=== PATIENT | male | born 1970 | race Caucasian/White ===

== ENCOUNTER 2016-12-17 20:10 | Emergency (ER) | payer OTHER ==
[2016-12-17 19:33] LABS: BASOPHILS 0.4 %; BASOPHILS ABSOLUTE 0.03 10/3/uL (0.0-0.16); EOSINOPHILS 0.7 %; EOSINOPHILS ABSOLUTE 0.06 10/3/uL (0.0-0.53); ER CBC TAT 0 Hrs 05 Mins; HEMOGLOBIN 14.5 g/dL (13.6-17.8); IMMATURE GRANULOCYTES 0.2 %; IMMATURE GRANULOCYTES ABSOLUTE 0.02 10/3/uL (0.0-0.11); LYMPHOCYTES 26.7 %; LYMPHOCYTES ABSOLUTE 2.15 10/3/uL (0.67-4.30); MEAN CORPUS HGB CONC 33.7 g/dL (32.0-36.0); MEAN CORPUSCULAR HEMOGLOB 31.3 pg (26.0-34.0); MEAN PLATELET VOLUME 9.5 fL (9.2-13.0); MONOCYTES 10.4 %; MONOCYTES ABSOLUTE 0.84 10/3/uL (0.21-1.20); NEUTROPHILS 61.6 %; NEUTROPHILS ABSOLUTE 4.94 10/3/uL (2.02-8.40); PLATELET COUNT 251 10/3/uL (150-400); RBC DISTRIBUTION WIDTH 12.7 % (12.0-16.0); RED CELL COUNT 4.64 10/6/uL (4.7-6.1)
[2016-12-17 19:34] LABS: MANUAL DIFF NO %; MEAN CORPUSCULAR VOLUME 92.7 fL (80-100)
[2016-12-17 19:52] LABS: BUN (BLOOD UREA NITROGEN) 13 MG/DL (6-23); CALCIUM, SERUM 8.3 MG/DL (8.5-10.4); CHLORIDE, SERUM 104 MMOL/L (96-112); CO2 (CARBON DIOXIDE) 24 MMOL/L (24-34); CREATININE 0.98 MG/DL (0.70-1.30); GFR AFRICAN AMERICAN 107 ML/MIN (>=60); GFR NON AFRICAN AMERICAN 93 ML/MIN (>=60); GLUCOSE, SERUM 93 MG/DL (60-99); SODIUM, SERUM 137 MMOL/L (135-148)
[~2016-12-17 20:10] MED LIST: ASAB PO; COREG6 PO; LEVOTHYROXIN50 MCG PO; METHOC500B PO; MULTIPLE VIT PO; NEXIUM20 M1 PO; NORCO1 TA1 PO; NORV5 PO; PRILOSEC OTC20 MG PO; ZOL50 PO
[2016-12-17 20:24] LABS: INFLUENZA A SCREEN NEGATIVE (NEGATIVE); INFLUENZA B SCREEN POSITIVE (NEGATIVE)
[2017-06-13] MEDS ORDERED: ADVIL PO (12:49)
[2017-06-17] MEDS ORDERED: PERCOCET 10/3251 TAB PO (10:34)
[2017-06-17] MEDS ORDERED: V5 PO (10:34)
== END 2016-12-17 21:27 | disposition home or self-care (01) ==
LOC: ER 20:10
PROVIDERS: Nurse Practitioner Acute Care
DX: J10.1 Influenza due to other identified influenza virus with other respiratory manifestations (principal); I10 Essential (primary) hypertension; K21.9 Gastro-esophageal reflux disease without esophagitis; F32.9 Major depressive disorder, single episode, unspecified; F17.200 Nicotine dependence, unspecified, uncomplicated; Z88.1 Allergy status to other antibiotic agents; Z79.899 Other long term (current) drug therapy; Z79.82 Long term (current) use of aspirin
CPT/HCPCS: 71020; 80048; 85025; 87804; 96372; 99284; J1885

== ENCOUNTER 2017-06-22 04:38 | Inpatient (IN) | payer OTHER ==
[~2017-06-22] VITALS: Ht 185.4 cm; Wt 113.0 kg
--- NOTE | ~2017-06-22 | OP ---
Record Of Operation [facility] [address] [place]. [address] NAME: YOGI PENA : 72 STATUS : ADM IN PAT#: [id number] AGE: 46 ADM/REG DATE : 06/22/17 MR#: [id number] REPORT SERV DATE: 06/23/17 DICTATED BY: GEOVANNY GORDILLO DATE: 06/22/17 REPORT STATUS : Draft TRANSCRIBED BY: MODL DATE: 06/22/17 DATE OF PROCEDURE: PREOPERATIVE DIAGNOSIS: Dural leak in the cervical region. POSTOPERATIVE DIAGNOSIS: Dural leak in the cervical region. PROCEDURE: Cerebrospinal fluid drain placement. After discussion with Dr. Thomas, you felt like the patient was after his surgery was at risk for a recollection of CSF fluid in his neck with potential airway compromise and a CSF drain was needed to try to close the dural leak. He did not feel there is any signs of infection in the neck area, so he has the CSF drain be placed. The patient had informed consent from the , whom I talked to and the patient, although he was postop. DESCRIPTION OF PROCEDURE: The patient was taken to the broncho unit and transferred to the right lateral decubitus position, prepped and draped with Hibiclens and sterile draping. Attempts were made after 3 mL of 1% lidocaine local at L4-L5, at L3-L4 with a #22-gauge spinal needle. CSF was obtained, but with the larger needle there was no CSF obtained. A paramedian approach at L3-L4 was attempted with CSF and a larger needle, there was a small amount of CSF, but the catheter would not thread or drain. After discussion with Dr. Thomas, he requested another attempt when in the sitting position. The patient was transferred to the sitting position, reprepped and draped with Hibiclens and sterile draping. A 3 mL of 1% lidocaine was injected at proximally L2-L3. A #22-gauge spinal needle was advanced with CSF. The larger CSF drain needle was advanced with CSF obtained catheter, was threaded to 10 cm and taped in place. It was draining well. At this point, the patient was then transferred back to the right lateral decubitus position and dressings were applied. The patient was then taken to the ICU in good condition. RODNEY/BRYAN Geovanny Gordillo M.D. / [id number] CC: Brent Hernandez MD
--- NOTE | ~2017-06-22 | HP ---
History And Physical [id number] [place]. [address] NAME: YOGI PENA : 72 STATUS : ADM IN [facility]#: [id number] AGE: 46 ADM/REG DATE : 06/22/17 MR#: [id number] REPORT SERV DATE: 06/22/17 DICTATED BY: CAMILO HERNANDEZ DATE: 06/22/17 REPORT STATUS : Draft TRANSCRIBED BY: MODL DATE: 06/22/17 DATE OF ADMISSION: 06/22/2017 CHIEF COMPLAINT: Swelling in neck. HISTORY OF PRESENT ILLNESS: Yogi Pena is a 46-year-old patient whom underwent C6-7 total disk replacement by Dr. Thomas and myself on 06/16/2017. Unfortunately, over the last few days, he has noticed increased swelling around the neck region with increasing difficulty swallowing. He was evaluated in the emergency room this morning and underwent CT, which showed a large fluid collection. He is also experiencing increasing neck and head pain, but no arm symptoms. Given the above, he was obviously indicated for wound exploration as well as drainage and I and D. the procedure as well as risks and alternatives were discussed with him and informed consent was obtained. PAST MEDICAL HISTORY: Hypertension, hyperlipidemia, obstructive sleep apnea, hypothyroidism. SURGICAL HISTORY: A total disk replacement C6-7, shoulder surgery, thyroid surgery. MEDICATIONS: Percocet, Zoloft, Medrol Dosepak, levothyroxine, esomeprazole, Valium, carvedilol, atorvastatin, aspirin, and amlodipine. ALLERGIES: AVELOX. SOCIAL HISTORY: The patient is . 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 Smokes a pack of cigarettes a day and rarely drinks alcohol. REVIEW OF SYSTEMS: Negative for bowel and bladder dysfunction or difficulty walking. LABORATORY TESTS: White cell count 21.7 with elevated neutrophils. Sodium slightly low at 134. CT scan cervical spine from today was reviewed and shows a well placed disk replacement C6-7. Fairly significant fluid collection on the right-hand side of the neck in the prevertebral region. IMPRESSION: Postoperative seroma/hematoma about a week status post total disk displacement at C6-7. PLAN: 1. Irrigation and drainage. 2. Wound cultures. 3. Antibiotics. 4. Admissions for observation postop. Then, again the surgery as well as risks and alternatives were discussed with this patient, and informed consent was obtained. History And Physical [address] [place]. [address] NAME: YOGI PENA : 72 STATUS : ADM IN PAT#: [id number] AGE: 46 ADM/REG DATE : 06/22/17 MR#: [id number] REPORT SERV DATE: 06/22/17 DICTATED BY: CAMILO HERNANDEZ DATE: 06/22/17 REPORT STATUS : Draft TRANSCRIBED BY: BRYAN DATE: 06/22/17 MARCK/BRYAN Camilo Hernandez MD / [id number] CC: MD Srinivas Carvajal M.D.
--- NOTE | ~2017-06-22 | CN ---
Consultation Report [facility] [address] [facility] [facility] [place]. [address] NAME: YOGI PENA : 72 STATUS : ADM IN PAT#: [id number] AGE: 46 ADM/REG DATE : 06/22/17 MR#: [id number] REPORT SERV DATE: 06/23/17 DICTATED BY: MANPREET SEGUNDO DATE: 06/22/17 REPORT STATUS : Draft TRANSCRIBED BY: MODL DATE: 06/22/17 CARDIOLOGY CONSULT DATE OF CONSULTATION: REFERRING REASON: Sinus bradycardia post recent neck surgery in the setting of retropharyngeal fluid collection with possible abscess and CSF leak. HISTORY OF PRESENT ILLNESS: This is a pleasant 46-year-old white gentleman, well known to Dr. Hernán Swann from [facility], with mild nonobstructive CAD based on arteriogram in 2015, hypertension, hyperlipidemia, and sleep apnea, on nocturnal CPAP. He had severe left upper extremity radiculopathy, and underwent by Dr. Thomas and Dr. Hernandez one week ago on 06/16/2017, C6-C7 disk replacement. He had been discharged on 06/17/2017 reportedly from the hospital. Over the last two days, he developed significant neck swelling, dysphagia, and throbbing headache. He was admitted earlier today to Orthopedic Surgery Service in ICU after he was found to have large retropharyngeal fluid collection measuring up to 3 cm in the greatest dimension on CT. This was lateral to the esophagus and trachea and medial to the right carotid artery and right internal jugular vein. This was a fluid collection concerning for possible abscess or seroma. Reportedly, the patient underwent exploration by Surgical Service earlier today which determined there is a CSF leak. The patient has been to a 45-degree angle in the bed and a CSF spinal drain has been placed and drained CSF fluid. Headache improved. The patient is drowsy but arousable. He remained in normal sinus rhythm and hemodynamically stable at the present time. However, when he falls asleep, his heart rate goes as low as 38 beats per minute, sinus bradycardia, and then when he moves or he is awake, his heart rate is in the 60s, sinus rhythm. He denies any palpitations, recent chest pain, dyspnea, or other symptoms. He has been on Coreg until yesterday, 6.25 mg twice a day. FAMILY HISTORY: Unobtainable. There are no family members around. PAST MEDICAL HISTORY: 1. Recent C6-C7 disk replacement for left upper extremity radiculopathy. 2. Hypertension. 3. Hyperlipidemia. 4. Obstructive sleep apnea, on nocturnal CPAP. 5. Remote history of thyroid surgery. 6. Hypothyroidism. 7. Gastroesophageal reflux disease. 8. History of mild nonobstructive coronary artery disease by angiogram in 2016 with the largest lesion 20% in the left circumflex. ALLERGIES: AVELOX. SOCIAL HISTORY: The patient is . 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 He smokes for many Consultation Report [address] [place]. [address] NAME: YOGI PENA : 72 STATUS : ADM IN [facility]#: [id number] AGE: 46 ADM/REG DATE : 06/22/17 MR#: [id number] REPORT SERV DATE: 06/23/17 DICTATED BY: MANPREET SEGUNDO DATE: 06/22/17 REPORT STATUS : Draft TRANSCRIBED BY: BRYAN DATE: 06/22/17 years, one pack a day. Denies drinking alcohol daily or using street drugs. FAMILY HISTORY: Negative for sudden cardiac and premature coronary artery disease in the family. HOME MEDICATIONS: Amlodipine 5 mg once a day; aspirin 81 mg once a day; Lipitor 10 mg once a day; Coreg 6.25 mg twice a day, the last dose taken in the morning at 6 a.m.; Valium 5 mg p.r.n.; Nexium 20 mg once a day; Synthroid 75 mcg once a day; Medrol pack; Zofran as needed; Percocet; and Zoloft 50 mg once a day. PHYSICAL EXAMINATION: GENERAL: A young gentleman, drowsy but arousable, answers questions appropriately. VITAL SIGNS: Blood pressure 130/87. Heart rate 60 beats per minute, sinus rhythm, with intermittent sinus bradycardia without clear evidence of AV block on the monitor, heart rate dropping to the 40s when he falls asleep. The patient is in a 45-degree angle in the bed with spinal drain draining reportedly CSF fluid. NECK: Swollen. I do not appreciated any bruit above the carotids. LUNGS: Decreased breath sounds but no crackles. ABDOMEN: Obese, distended, and nontender. COR: Normal S1, S2. No S3 or S4. No significant rub or murmurs. EXT: No edema. Pedal pulses strong and equal bilaterally. SKIN: Warm with normal turgor. There are tattoos on skin of upper extremity noted. MS - No kyphosis. NEURO/PSY - Alert and oriented. Nonfocal. DATA: Remarkable for hemoglobin 13.7 with leukocytosis 21,000 with left shift. Sodium [address] of the neck as above. He remained in normal sinus rhythm. The electrocardiogram from earlier today could not be identified. Electrocardiogram from 06/13/2017 revealed normal sinus rhythm. Normal EKG, normal intervals. On monitoring, he is in sinus rhythm with intermittent sinus bradycardia. ASSESSMENT AND PLAN: 1. Status post recent cervical disk surgery, now with retropharyngeal fluid collection, possible abscess, seroma with reportedly documented CSF leak. 2. Intermittent sinus bradycardia. 3. Use of carvedilol for documented nonobstructive coronary artery disease, we will hold off the carvedilol. We will do an electrocardiogram. The patient will require if needed atropine, and in case that he will be persistently having bradycardia in the low 40s, we may need to use Isuprel tonight. Likely his bradycardia may improve when he starts using his CPAP at night for the sleep apnea. His electrolytes need to be followed closely. Still concerning is his leukocytosis with left shift. Antibiotic coverage per primary service. Dr. Swann will see the patient in the morning. Consultation Report [address] [place]. [address] NAME: YOGI PENA : 72 STATUS : ADM IN PAT#: [id number] AGE: 46 ADM/REG DATE : 06/22/17 MR#: [id number] REPORT SERV DATE: 06/23/17 DICTATED BY: MANPREET SEGUNDO DATE: 06/22/17 REPORT STATUS : Draft TRANSCRIBED BY: BRYAN DATE: 06/22/17 LAILA/BRYAN Manpreet Segundo M.D. / [id number] CC: Brent Hernandez MD
--- NOTE | ~2017-06-22 | CN ---
Consultation Report [address] [place]. [address] NAME: YOGI PENA : 72 STATUS : ADM IN PAT#: [id number] AGE: 46 ADM/REG DATE : 06/22/17 MR#: [id number] REPORT SERV DATE: 06/23/17 DICTATED BY: LACI ESPINOZA DATE: 06/22/17 REPORT STATUS : Draft TRANSCRIBED BY: MODL DATE: 06/22/17 NEUROLOGY CONSULTATION DATE OF CONSULTATION: REASON FOR CONSULTATION: Headache and encephalopathy. HISTORY: A 46-year-old male with a past medical history significant for hypertension; hyperlipidemia; obstructive sleep apnea, on CPAP, hypothyroidism, on replacement, and obesity, who underwent C6-C7 total disk replacement by Dr. Thomas on 06/16/2017. Over the past several days, he has noticed increased swelling in his neck with increased neck pain, difficulty swallowing. He has had progressive headache and was evaluated in the emergency room this morning. He underwent a head CT, which revealed a large fluid collection. He denies any cervical radicular symptoms or lower extremity weakness, numbness, tingling, or paresthesias. He underwent irrigation and debridement today, and it was felt that this represented CSF collection with a noted dural tear. The patient did develop some postoperative bradycardia which seemingly has improved. He has had persistent head pain. He has been mildly lethargic at times, but easily arousable and appropriate with no focal neurologic symptoms. There has been no seizure activity, vision changes, tinnitus, vertigo, and again, no focal neurologic symptoms. PAST MEDICAL HISTORY: Hypertension, hyperlipidemia, obesity, sleep apnea on CPAP, hypothyroidism, degenerative disk disease. PAST SURGICAL HISTORY: Status post total disk replacement C6-C7, status post shoulder surgery, status post thyroid surgery, CURRENT MEDICATIONS: Listed on chart. ALLERGIES: AVELOX. FAMILY HISTORY: Noncontributory. 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 Drinks alcohol rarely. Denies any illicit drug intake. REVIEW OF SYSTEMS: As above, other systems were negative or reviewed other than above. PHYSICAL EXAMINATION: VITAL SIGNS: Blood pressure is 125/75, heart rate 73, respirations 15, oxygen saturations Consultation Report [id number] [facility]. [address] NAME: YOGI PENA : 72 STATUS : ADM IN PAT#: [id number] AGE: 46 ADM/REG DATE : 06/22/17 MR#: [id number] REPORT SERV DATE: 06/23/17 DICTATED BY: LACI ESPINOZA DATE: 06/22/17 REPORT STATUS : Draft TRANSCRIBED BY: MODL DATE: 06/22/17 95%, temperature is 98. GENERAL: Well-nourished, well-developed white male, in mild distress secondary to headache. NECK: Supple. CARDIAC: Brudzinski signs were negative. Heart was regular rate and rhythm. LUNGS: Clear. ABDOMEN: Benign with normoactive bowel sounds. EXTREMITIES: With no cyanosis, clubbing, or edema. Peripheral pulses were 2+. Neck drain is in place with 20 mL of slightly tinged, but clear CSF-appearing fluid. NEUROLOGIC: Mental status, the patient is minimally lethargic, but easily arousable. He is oriented x4. He is appropriate with all questions. Speech and language are normal. CRANIAL NERVES: Visual menchaca are full. Eye movements are full without nystagmus. Normal facial sensation. No facial asymmetry. No tongue deviation. Pupils 3.5 mm, reactive to 2 mm. Funduscopic exam revealed sharp disks with normal spontaneous venous pulsations. MOTOR: Normal tone and bulk. Strength is 5/5 throughout. Reflexes 2 to 3+ and symmetric. Toes were downgoing. Roe's and tremor signs negative. Sensory examination, intact to pin, light touch, and temperature without extinction. Vibration intact to the toes. Coordination intact. [id number], [id number], and rapid alternating movements and left gait not tested. STUDIES: Neck CT today revealed a retropharyngeal fluid collection extending longitudinally from C2 to T1 with 3 cm greatest transverse dimension. It extends anteriorly for a distance of 7 cm at the levels of C7 to T1. The fluid collection is lateral to the esophagus and trachea, medial the right carotid artery, right internal jugular vein, and right sternocleidomastoid. IMPRESSION: Headache and neck pain, likely secondary to cerebrospinal fluid leak in the setting of postoperative cervical spine surgery. There is likely some degree of dysautonomia. I do not believe that this represents a likely central herniation syndrome, but this needs to be monitored. PLAN: 1. Continue cautious, slow removal of CSF. 2. Check close neuro checks. 3. Check a stat head CT. 4. Minimize use of sedating medicines. 5. Continue CPAP for sleep apnea. 6. I spoke with Dr. Jolley, Dr. Thomas, and Anesthesia/Dr. Gordillo. 7. Since the patient's head is elevated to remove CSF fluid, this may contribute to his continued headache. 8. Neuro hospitalist to follow. Thank you again for your confidence and referral. Consultation Report [address] [id number] [place] [address] NAME: YOGI PENA : 72 STATUS : ADM IN PAT#: [id number] AGE: 46 ADM/REG DATE : 06/22/17 MR#: [id number] REPORT SERV DATE: 06/23/17 DICTATED BY: LACI ESPINOZA DATE: 06/22/17 REPORT STATUS : Draft TRANSCRIBED BY: BRYAN DATE: 06/22/17 TK/BRYAN Laci Espinoza M.D. Diplomate [place] [employer] and Neu[employer] / [id number] CC: MD Quique Carvajal M.D. James Jolley II, M.D.
--- NOTE | ~2017-06-22 | OP ---
Record Of Operation [facility] [address] [place]. 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 PROCEDURES: 1. Cervical wound exploration with irrigation and drainage. 2. Total disk replacement explant at C6-7. 3. Wide anterior cervical decompression to expose the cervical dura. 4. Cervical dura repair. 5. Anterior spinal fusion, C6-7 with allograft had mixed in bone marrow aspirate. 6. Plate fusion, C6-7. 7. Right iliac crest bone marrow aspirate. VENTILATING EXPERT: Moise. ANESTHESIA: General with Dr. Hendrix. ESTIMATED BLOOD LOSS: 75 mL. FLUID: 1700 mL LR. URINE OUTPUT: 250 mL. IMPLANTS: 9 mm x 14 mm x 11 mm allograft from [employer], anterior cervical plate system ZEVO by [employer] as well, 27 mm in height with four 3.5 x 15 mm variable angle screws. INDICATIONS: Yogi Pena is a 46-year-old patient, who underwent a cervical disk replacement by Dr. Thomas greater than one week ago. In about a week postoperatively, the patient developed severe headaches as well as neck and back pain and swelling in the neck. Wound exploration at that time revealed a CSF leak coming deep to the disk replacement. This was reinforced with DuraSeal and DuraGen at that time. Also lumbar drain was placed. Unfortunately, at day #3, when the drain was clamped, he had increasing clear drainage from the cervical spine as well as persistent worsening headaches indicating a persistent CSF leak. Because of this, he was indicated for wound exploration and repair as possible. I felt that potentially at the most, the patient could need a C6-C7 corpectomy in order to expose the dura versus a wide decompression. Fortunately, a wide decompression did reveal the edges of the dura and the above surgery was contemplated and offered to the patient. Informed consent ultimately was obtained. The surgical risks were discussed with this patient include, but are not limited to persistent CSF leak, severe consequences of such as herniation of the brainstem or cerebellum resulting in , infection including meningitis, life-threatening bleeding, subsidence of the bone graft, failure of the Record Of Operation [address] [address] NAME: YOGI PENA : 71 STATUS : ADM IN PAT#: [id number] AGE: 46 ADM/REG DATE : 06/22/17 MR#: [id number] REPORT SERV DATE: 06/27/17 DICTATED BY: BRENT HERNANDEZ DATE: 06/27/17 REPORT STATUS : Draft TRANSCRIBED BY: MODIsmael DATE: 06/27/17 hardware, nonunion, malunion, adjacent level disease, dysphagia, dysphonia, esophageal injury, deep hematoma, seroma, Marcos's syndrome, and superior laryngeal nerve injury. Position complication such as pressure sources, nerve palsies, blindness, and medical complications such as heart attack, strokes, blood clots, pneumonia, and even , and informed consent was obtained. INTRAOPERATIVE FINDINGS: 1. 5 to 8 mm wide defect in the dura beginning in the central C6-7 space extending over to the right-hand side. This was partially repaired with a DuraGen patch sewn in. Flap in the side of the midline structures with no communication into the pharynx or esophagus. 2. Thick exudate coming from the wound. Deep cultures were obtained. DESCRIPTION OF PROCEDURE: The patient was identified in the holding room. The procedure as well as risks and alternatives were discussed with he and his . He was taken back to the operating room, where all standard cardiopulmonary monitoring were attached. He was carefully placed on the hospital bed in a supine position. After smooth induction of general endotracheal anesthesia. Bony prominences were checked and protected. The neck was placed in a slightly extended position. Bony prominences, extremities, face, and spinal were carefully checked and protected. The neck and right hip were prepped and draped in the usual sterile surgical fashion. IV antibiotics were administered. I then removed the goo from the patient's skin, scissors-spread technique opening up the superficial level removing the superficial sutures. There was thick fluid coming from the wound. This was cultured for aerobes and anaerobics. I continued dissection down to the platysma. This was opened and the sutures were removed as well. I scraped the edges of the superficial tissue as well as the platysma with a curetted getting down to normal tissue. I finger dissected down to the prevertebral space. I did dissect deep with scissors-spread dissection above and below to give myself more space down to the disk space for more room to work. Various self retaining retractors were used to expose the deep space at this point. It was noted that there was a flap of tissue in the side of the midline structures, it was unclear whether this was just strap musculatures into the pharyngeal wall. At this point, I had the anesthesiologist placed an esophageal probe. I could palpate it and in fact see the motion within the wound, where it was that, there was certainly no communication with the flap that I had seen. Also when I did bring the microscope in, there appeared to be no tear or rent or hold down deep. Once I was certain of this, I continued my dissection down deep. I exposed the bodies of C6 and C7 as well as the disk space. Self retaining retractors were placed and the microscope was brought in. The lumbar drain was clamped at this point, and after several minutes, CSF did start to flow from the disk space. Therefore, I placed Fermin pins in the center of C6 and C7 close to the supra and subjacent disk spaces. Distraction was applied. An osteotome was placed above the superior aspect of the disk replacement. It was ultimately worked loose and pulled out. I did the same maneuver inferiorly, placed an osteotome above the implant half and removed it with no significant trauma. CSF was welling up from the bottom of the wound. I packed it down with Gelfoam theodore. I then used the high-speed carmen, removed several millimeters of bone above and below in the endplates, and worked my way to the back of the wound. There was bone inferiorly still covering the disk space. This was taken down as well. There was thick leftovers of probably the DuraGen and the DuraSeal. This was removed very carefully. Nerve hooks were Record Of Operation [place] [id number] [facility] [place]. [address] NAME: YOGI PENA : 72 STATUS : ADM IN PAT#: [id number] AGE: 46 ADM/REG DATE : 06/22/17 MR#: [id number] REPORT SERV DATE: 06/27/17 DICTATED BY: BRENT HERNANDEZ DATE: 06/27/17 REPORT STATUS : Draft TRANSCRIBED BY: BRYAN DATE: 06/27/17 swept above and below the endplate and soft tissue was removed to expose the dura. At this point, there was obvious defect within the dura, it started centrally, extended over to the right-hand side. There was flaps above and below only medially, but no really major remnants laterally. I continued my bony resection above and below until I could find some reasonable edges of the dura. Still there were no flaps to easily cover the wound. Once I had sufficient space to work, I took a 6-0 [place]-Niraj sutured with a small taper needle, passed it several passes into the apex. I tried to capture the edges of the dura laterally. They were too friable and then not significant to hold the needle, the suture broke through multiple occasions. At this point, I cut a small square of DuraGen. The double-armed needles were then passed through this, so the [place]-Niraj sutures on both sides were sparing the DuraGen patch. It was subsequently passed down the sutures to cover the defect. It was sewn in place. The wound was then observed for approximately 20 minutes with the drain clamped and the patient in a flat position. There seemed to be no CSF leak at all at this point. The endplates were then trialed, 9 mm was a good fit. A stab incision was then made in the right iliac crest about four fingerbreadths posterior to the ASIS. The Jamshidi needle was then packed into the superior iliac crest, it was pushed in between the inner and outer tables. The bone marrow was then aspirated into the syringe, and the bone graft was soaked within this. The bone graft was then put into place. Under gentle distraction, the [place] pins were removed. The defects were filled with Gelfoam. Still at this point, there was no evidence of CSF leak. A very small amount of DuraSeal were placed in the corners of the bone graft. Given the expansile characteristics of the DuraSeal, I did not overfill the corners whatsoever. The wound edges were very carefully examined at this point. No significant bleeding was identified. It was irrigated with a liter of normal saline. The platysma was closed with running 3-0 Vicryl in a water tight suture. The subcutaneous tissue was closed in a similar manner. The skin was closed with nonabsorbable 3-0 Prolene in a subcuticular manner followed by Steri-Strips and sterile dressing. At this point, the lumbar drain was again turned onto 10 mL/h. The patient was then transported to the recovery room, and extubated without any problems or complications. MARCK/BRYAN Brent Hernandez MD / [id number] CC: MD Srinivas Carvajal M.D.
--- NOTE | ~2017-06-22 | OP ---
Record Of Operation [facility] [address] [place]. [address] NAME: YOGI PENA : 72 STATUS : ADM IN PAT#: [id number] AGE: 46 ADM/REG DATE : 06/22/17 MR#: [id number] REPORT SERV DATE: 06/22/17 DICTATED BY: CAMILO HERNANDEZ DATE: 06/22/17 REPORT STATUS : Draft TRANSCRIBED BY: MODL DATE: 06/22/17 DATE OF PROCEDURE: PREOPERATIVE DIAGNOSIS: Probable cervical hematoma/seroma, postsurgical. POSTOPERATIVE DIAGNOSIS: Cervical CSF leak. PROCEDURE: 1. Cervical wound exploration. 2. Irrigation and drainage, cervical fluid collection. 3. Dural leak reinforcement/repair. SALESPERSON ART OBJECTS: Camilo Thomas MD. ANESTHESIA: General. BLOOD LOSS: Minimal. FLUIDS: 1 L LR. INTRAOPERATIVE FINDINGS: Clear fluid obviously coming from the right hand side of the C6-7 disk space consistent with a fluid leak. We were able to distract the disk space a little bit and did show a very small durotomy, this was subsequently reinforced with DuraGen and DuraSeal. No evidence of infection whatsoever. INDICATIONS: Yogi Pena is a 46-year-old patient who underwent total disk replacement on 06/16/2017 at C6-7. There were no unusual findings or complications during the surgery. Unfortunately, approximately two days ago, the patient has noticed increased headaches as well as pain in the neck and shoulder region, presented to the emergency room this morning. A CT scan showed a fluid collection, prevertebral; this was felt most likely to be either a hematoma or seroma and was indicated for exploration. The surgery as well as risks and alternatives were discussed with the patient and informed consent was obtained. Risks include, but are not limited to, bleeding, infection, CSF leak, in this case with persistent leakage, injury to the approach related structures including the esophagus, airway, vascular system, sympathetic nerve, and spinal cord causing dysphagia, dysphonia, airway complications, or airway difficulties, deep infection, Marcos syndrome. Nerve and spinal cord injury. Position complication such as pressure sores, nerve palsies, eye injury, and medical complications such as heart attack, stroke, blood clots, pneumonia, and even . Informed consent was obtained. Also infection was obviously a risk. DESCRIPTION OF PROCEDURE: Patient was identified in the holding room. Surgery as well as risks and alternatives were discussed with he and his . He was taken back to operating room, where all standard cardiopulmonary monitors were attached. After smooth induction of general endotracheal anesthesia, IV antibiotics were administered and the neck was prepped and draped in the usual sterile surgical fashion. I then scissor-spread the wound after removing the superficial glue. Sutures were removed in a superficial layer. The Record Of Operation [place] [id number] [facility] [place]. [address] NAME: YOGI PENA : 72 STATUS : ADM IN PAT#: [id number] AGE: 46 ADM/REG DATE : 06/22/17 MR#: [id number] REPORT SERV DATE: 06/22/17 DICTATED BY: CAMILO HERNANDEZ DATE: 06/22/17 REPORT STATUS : Draft TRANSCRIBED BY: BRYAN DATE: 06/22/17 subcutaneous sutures were removed as well down to the platysma. There was a clear fluid even just at the level of the platysma. Once this opened, clear fluid was expressed from the wound. I continued very careful dissection down to the next layer as there was a small bleeder, which was too which was sutured and coagulated without any problems. This was in the superficial layer. I continued my dissection down to the prevertebral space. There was a small hematoma, but there was more clear fluid. At this point, it was evident that the fluid was coming from the disk space. The microscope was subsequently brought in. The disk space was opened up by placing a [place] and turning it sideways. We were able to see where the CSF leak was coming from the right corner. There was a small leak down this area, however, in this space, it would be impossible to suture repair, therefore, after gentle irrigation was performed, a square of DuraGen was placed over the leak and reinforced with DuraSeal. The distraction was removed from the disk space. DuraSeal was applied to the remaining of the disk space. This was visualized for a while and once it was evident that there was no leakage at this point, the wound was thoroughly irrigated with a liter of normal saline and antibiotic irrigant. The platysma was closed with running 2-0 PDS, subcutaneous tissue was closed with 3-0 PDS, and the skin was closed with 4-0 Monocryl. Sterile dressings were applied. During the case, once it was determined that the fluid collection was from the CSF leak, the patient's head was elevated to about 30 degrees and once the procedures were ended, he was elevated to about 45 degrees in general. At this point, he was extubated and sent to the recovery room, and the plan is to place a lumbar drain and keep the patient in upright position and monitor the drain for several days. MARCK/BRYAN Camilo Hernandez MD / [id number] CC: Camilo Hernandez MD
--- NOTE | ~2017-06-22 | CN ---
Consultation Report [facility] [address] [place]. 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 Thomas on 06/16/2017. Over the last couple of days at home, he noticed increased neck swelling with some increased difficulty in swallowing. He went back to the OR after a large fluid collection was discovered on CT in the emergency department, and he underwent wound exploration with I and D of the area. He also had a CSF drain placed by Dr. Gordillo from Anesthesia who is managing that. He is in the CVICU now recovering from his procedure and experiencing 10/10 headache. He was seen by Dr. Jolley from [facility] for bradycardia, who raised the concern of the patient perhaps herniating, and he has consulted Dr. Nava from Neurology as well as myself to assist with management. Dr. Gordillo is aware of this situation, has already evaluated the patient this evening and feels that this is normal symptom postoperatively due to dural headache and does not feel that additional intervention is warranted at this point. We have been trying to get the primary team on the phone and have not been able to get a call back as of yet. PAST MEDICAL HISTORY: Obesity, hypertension, dyslipidemia, obstructive sleep apnea on home CPAP, and hypothyroidism. SURGICAL HISTORY: C6-7 total disk replacement as above, shoulder surgery and thyroid surgery. SOCIAL HISTORY: As above. 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 He is . He smokes one-pack per day for several years and intermittently uses alcohol. He denies illicit drug use. FAMILY HISTORY: Noncontributory. ALLERGIES: AVELOX. HOME MEDICATIONS: Percocet, Zoloft, Medrol Dosepak, levothyroxine, esomeprazole, Valium, Coreg, atorvastatin, aspirin, amlodipine. REVIEW OF SYSTEMS: A 14-point review of systems was completed and is positive for nausea with intermittent episodes of vomiting this afternoon, significant headache, and neck pain. Otherwise, as per HPI. PHYSICAL EXAMINATION: VITAL SIGNS: The patient's blood pressure is 145/77, his heart rate is 61, breathing 70 times per minute on room air with a sat of 96% with a good waveform on the monitor. He did Consultation Report [address] [place]. [address] NAME: YOGI PENA : 72 STATUS : ADM IN PAT#: [id number] AGE: 46 ADM/REG DATE : 06/22/17 MR#: [id number] REPORT SERV DATE: 06/22/17 DICTATED BY: JUNITO SNOW DATE: 06/22/17 REPORT STATUS : Draft TRANSCRIBED BY: BRYAN DATE: 06/22/17 reports 07/25 head pain. GENERAL: The patient is a male who is obese and in mild distress due to head pain, but with no respiratory distress. HEENT: Head is atraumatic and normocephalic. Pupils are equal, round, and reactive to light. Extraocular movements are intact. Ears, nose, and mouth are unremarkable. He has a CSF drain in place and clean dressing over his incision from I and D of his fluid collection. CHEST: Clear. Heart S1, S2. Sinus bradycardia on the monitor. Brisk cap refill distal extremities with good perfusion and intact cap refill in all nail beds. He is warm to touch. ABDOMEN: Obese, soft, nontender, nondistended with positive bowel sounds in all four quadrants. No appreciable peritoneal signs. : Normal external male genitalia. EXTREMITIES: Without clubbing, cyanosis, or edema. He has intact sensorimotor function bilaterally with no focal neurologic deficit, although he is somewhat drowsy, likely secondary to pain medicine administration. PSYCHIATRIC: Appropriate to situation. DIAGNOSTIC STUDIES: Personal review of diagnostic workup. CBC shows leukocytosis with a white blood cell count of 21.5, hemoglobin of 13.7, hematocrit of 39.7, platelet count is adequate at 392. He has 79% neutrophils on differential. Metabolic profile is fairly unremarkable. IMAGING: Neck CT ordered by Dr. Zelaya in the emergency department showed a retroperitoneal fluid collection suspicious for an abscess extending longitudinally from the inferior aspect of C2 through the inferior aspect of T1 with a 3 cm measured at its greatest transverse dimension. This has since been drained. An EKG performed this evening shows sinus bradycardia with ventricular rate of 44, QT of 416. No ST elevation or depression by my interpretation. IMPRESSION: 1. Postoperative fluid collection, status post total disk replacement at C6-7. 2. Severe headache felt to be dural in nature from discussion with anesthesia. 3. Sinus bradycardia of unclear etiology. 4. Underlying past medical history of hypertension, dyslipidemia, obstructive sleep apnea on home CPAP, and hypothyroidism. 5. History of GERD. PLAN: At Dr. Jolley's request, we will continue to monitor Mr. Pena overnight and be available as needed for assistance. We will follow up additional recommendations from primary team which is spine surgery and anesthesia will continue to manage the CSF drain. Neurology has already been consulted and Dr. Nava is en route to hospital to see the patient and has already ordered a head CT. Continue judicious pain control medications as per primary team and we will re-evaluate in the morning. Consultation Report [address] [address] NAME: YOGI PENA : 72 STATUS : ADM IN PAT#: [id number] AGE: 46 ADM/REG DATE : 06/22/17 MR#: [id number] REPORT SERV DATE: 06/22/17 DICTATED BY: JUNITO SNOW DATE: 06/22/17 REPORT STATUS : Draft TRANSCRIBED BY: BRYAN DATE: 06/22/17 ADITYA/BRYAN Junito Snow MD / [id number] CC: Brent Hernandez MD
[~2017-06-22 04:38] MED LIST changes: +ADVIL PO; +PERCOCET 10/3251 TAB PO; +V5 PO
[2017-06-22 05:23] LABS: BASOPHILS 0.1 %; BASOPHILS ABSOLUTE 0.02 10/3/uL (0.0-0.16); EOSINOPHILS 0.1 %; EOSINOPHILS ABSOLUTE 0.03 10/3/uL (0.0-0.53); HEMATOCRIT 39.7 % (40.0-51.0); HEMOGLOBIN 13.7 g/dL (13.6-17.8); IMMATURE GRANULOCYTES 0.7 %; IMMATURE GRANULOCYTES ABSOLUTE 0.15 10/3/uL (0.0-0.11); LYMPHOCYTES 13.8 %; LYMPHOCYTES ABSOLUTE 2.97 10/3/uL (0.67-4.30); MEAN CORPUS HGB CONC 34.5 g/dL (32.0-36.0); MEAN CORPUSCULAR HEMOGLOB 31.8 pg (26.0-34.0); MEAN CORPUSCULAR VOLUME 92.1 fL (80-100); MEAN PLATELET VOLUME 9.3 fL (9.2-13.0); MONOCYTES 6.1 %; MONOCYTES ABSOLUTE 1.32 10/3/uL (0.21-1.20); NEUTROPHILS 79.2 %; NEUTROPHILS ABSOLUTE 17.01 10/3/uL (2.02-8.40); RBC DISTRIBUTION WIDTH 12.2 % (12.0-16.0); RED CELL COUNT 4.31 10/6/uL (4.7-6.1)
[2017-06-22 05:25] LABS: ER CBC TAT 0 Hrs 07 Mins; MANUAL DIFF NO %; PLATELET COUNT 392 10/3/uL (150-400); WHITE BLOOD CELLS 21.5 10/3/uL (4.5-10.5)
[2017-06-22 05:36] LABS: CALCIUM, SERUM 9.3 MG/DL (8.5-10.4); CHLORIDE, SERUM 101 MMOL/L (96-112); CO2 (CARBON DIOXIDE) 25 MMOL/L (24-34); CREATININE 0.92 MG/DL (0.70-1.30); GFR AFRICAN AMERICAN 116 ML/MIN (>=60); GFR NON AFRICAN AMERICAN 100 ML/MIN (>=60); GLUCOSE, SERUM 117 MG/DL (60-99); POTASSIUM, SERUM 4.4 MMOL/L (3.5-5.3); SODIUM, SERUM 134 MMOL/L (135-148)
[2017-06-22 05:37] LABS: BUN (BLOOD UREA NITROGEN) 18 MG/DL (6-23)
[2017-06-22] MEDS ORDERED: COREG6 PO (07:42)
[2017-06-22] MEDS ORDERED: MEDROLPAK4 PO (07:43)
[2017-06-22] MEDS ORDERED: V5 PO (07:45)
[2017-06-22] MEDS ORDERED: SYN075 PO (07:45)
[2017-06-22] MEDS ORDERED: PERCOCET 10/3251 TAB PO (07:45)
[2017-06-22] MEDS ORDERED: LIPITOR10 PO (07:46)
[2017-06-22] MEDS ORDERED: NORV5 PO (07:46)
[2017-06-22] MEDS ORDERED: NEXIUM20 M1 PO (07:46)
[2017-06-22] MEDS ORDERED: ZOL50 PO (07:46)
[2017-06-22] MEDS ORDERED: ZOFRAN4 PO (07:47)
[2017-06-22] MEDS ORDERED: ASAB PO (07:47)
[2017-06-23 05:07] LABS: BASOPHILS 0 %; BASOPHILS ABSOLUTE 0.01 10/3/uL (0.0-0.16); EOSINOPHILS 0 %; EOSINOPHILS ABSOLUTE 0.01 10/3/uL (0.0-0.53); HEMATOCRIT 38.2 % (40.0-51.0); HEMOGLOBIN 13.1 g/dL (13.6-17.8); IMMATURE GRANULOCYTES 0.5 %; IMMATURE GRANULOCYTES ABSOLUTE 0.11 10/3/uL (0.0-0.11); LYMPHOCYTES 13.1 %; LYMPHOCYTES ABSOLUTE 3.03 10/3/uL (0.67-4.30); MEAN CORPUS HGB CONC 34.3 g/dL (32.0-36.0); MEAN CORPUSCULAR VOLUME 93.2 fL (80-100); MEAN PLATELET VOLUME 9.5 fL (9.2-13.0); MONOCYTES ABSOLUTE 2.07 10/3/uL (0.21-1.20); NEUTROPHILS 77.4 %; NEUTROPHILS ABSOLUTE 17.86 10/3/uL (2.02-8.40); PLATELET COUNT 382 10/3/uL (150-400); RBC DISTRIBUTION WIDTH 12.3 % (12.0-16.0); WHITE BLOOD CELLS 23.1 10/3/uL (4.5-10.5)
[2017-06-23 05:09] LABS: BUN (BLOOD UREA NITROGEN) 16 MG/DL (6-23); CALCIUM, SERUM 9.1 MG/DL (8.5-10.4); CHLORIDE, SERUM 98 MMOL/L (96-112); CO2 (CARBON DIOXIDE) 26 MMOL/L (24-34); CREATININE 0.77 MG/DL (0.70-1.30); GFR AFRICAN AMERICAN 127 ML/MIN (>=60); GFR NON AFRICAN AMERICAN 110 ML/MIN (>=60); GLUCOSE, SERUM 118 MG/DL (60-99); MANUAL DIFF NO %; POTASSIUM, SERUM 4.3 MMOL/L (3.5-5.3); SODIUM, SERUM 132 MMOL/L (135-148)
[2017-06-24 04:44] LABS: BASOPHILS 0 %; BASOPHILS ABSOLUTE 0.01 10/3/uL (0.0-0.16); EOSINOPHILS 0 %; EOSINOPHILS ABSOLUTE 0.01 10/3/uL (0.0-0.53); HEMATOCRIT 40.9 % (40.0-51.0); HEMOGLOBIN 13.5 g/dL (13.6-17.8); IMMATURE GRANULOCYTES 0.5 %; IMMATURE GRANULOCYTES ABSOLUTE 0.12 10/3/uL (0.0-0.11); LYMPHOCYTES 8.6 %; LYMPHOCYTES ABSOLUTE 1.91 10/3/uL (0.67-4.30); MEAN CORPUSCULAR HEMOGLOB 31.3 pg (26.0-34.0); MEAN CORPUSCULAR VOLUME 94.7 fL (80-100); MEAN PLATELET VOLUME 9.5 fL (9.2-13.0); NEUTROPHILS 81.9 %; NEUTROPHILS ABSOLUTE 18.14 10/3/uL (2.02-8.40); PLATELET COUNT 387 10/3/uL (150-400); RBC DISTRIBUTION WIDTH 12.3 % (12.0-16.0); RED CELL COUNT 4.32 10/6/uL (4.7-6.1); WHITE BLOOD CELLS 22.2 10/3/uL (4.5-10.5)
[2017-06-24 04:46] LABS: MANUAL DIFF NO %
[2017-06-24 04:57] LABS: BUN (BLOOD UREA NITROGEN) 20 MG/DL (6-23); CHLORIDE, SERUM 101 MMOL/L (96-112); CO2 (CARBON DIOXIDE) 26 MMOL/L (24-34); CREATININE 0.69 MG/DL (0.70-1.30); GFR AFRICAN AMERICAN 133 ML/MIN (>=60); GFR NON AFRICAN AMERICAN 115 ML/MIN (>=60); GLUCOSE, SERUM 132 MG/DL (60-99); POTASSIUM, SERUM 3.8 MMOL/L (3.5-5.3); SODIUM, SERUM 134 MMOL/L (135-148)
[2017-06-25 03:56] LABS: BASOPHILS 0 %; EOSINOPHILS 0.2 %; EOSINOPHILS ABSOLUTE 0.03 10/3/uL (0.0-0.53); HEMATOCRIT 38.2 % (40.0-51.0); HEMOGLOBIN 12.7 g/dL (13.6-17.8); IMMATURE GRANULOCYTES 0.6 %; IMMATURE GRANULOCYTES ABSOLUTE 0.09 10/3/uL (0.0-0.11); LYMPHOCYTES 6.2 %; LYMPHOCYTES ABSOLUTE 0.96 10/3/uL (0.67-4.30); MEAN CORPUS HGB CONC 33.2 g/dL (32.0-36.0); MEAN CORPUSCULAR VOLUME 96.2 fL (80-100); MEAN PLATELET VOLUME 9.2 fL (9.2-13.0); MONOCYTES 7.1 %; NEUTROPHILS 85.9 %; NEUTROPHILS ABSOLUTE 13.27 10/3/uL (2.02-8.40); PLATELET COUNT 339 10/3/uL (150-400); RED CELL COUNT 3.97 10/6/uL (4.7-6.1); WHITE BLOOD CELLS 15.5 10/3/uL (4.5-10.5)
[2017-06-25 03:59] LABS: MANUAL DIFF NO %
[2017-06-25 04:10] LABS: BUN (BLOOD UREA NITROGEN) 17 MG/DL (6-23); CHLORIDE, SERUM 106 MMOL/L (96-112); CO2 (CARBON DIOXIDE) 28 MMOL/L (24-34); CREATININE 0.42 MG/DL (0.70-1.30); GFR AFRICAN AMERICAN 163 ML/MIN (>=60); GFR NON AFRICAN AMERICAN 141 ML/MIN (>=60); PHOSPHORUS, SERUM 2.5 MG/DL (2.5-4.5); POTASSIUM, SERUM 3.9 MMOL/L (3.5-5.3); SODIUM, SERUM 139 MMOL/L (135-148)
[2017-06-25 04:14] LABS: GLUCOSE, SERUM 103 MG/DL (60-99)
[2017-06-26 03:59] LABS: BASOPHILS 0.1 %; BASOPHILS ABSOLUTE 0.01 10/3/uL (0.0-0.16); EOSINOPHILS 0.3 %; EOSINOPHILS ABSOLUTE 0.04 10/3/uL (0.0-0.53); HEMOGLOBIN 14.4 g/dL (13.6-17.8); IMMATURE GRANULOCYTES 0.7 %; LYMPHOCYTES 12.2 %; LYMPHOCYTES ABSOLUTE 1.79 10/3/uL (0.67-4.30); MEAN CORPUS HGB CONC 32.8 g/dL (32.0-36.0); MEAN CORPUSCULAR HEMOGLOB 31.6 pg (26.0-34.0); MEAN CORPUSCULAR VOLUME 96.5 fL (80-100); MEAN PLATELET VOLUME 9.3 fL (9.2-13.0); MONOCYTES 9.9 %; MONOCYTES ABSOLUTE 1.45 10/3/uL (0.21-1.20); NEUTROPHILS 76.8 %; NEUTROPHILS ABSOLUTE 11.28 10/3/uL (2.02-8.40); PLATELET COUNT 381 10/3/uL (150-400); RBC DISTRIBUTION WIDTH 12.2 % (12.0-16.0); RED CELL COUNT 4.55 10/6/uL (4.7-6.1); WHITE BLOOD CELLS 14.7 10/3/uL (4.5-10.5)
[2017-06-26 04:02] LABS: HEMATOCRIT 43.9 % (40.0-51.0); MANUAL DIFF NO %
[2017-06-26 04:09] LABS: BUN (BLOOD UREA NITROGEN) 17 MG/DL (6-23); CALCIUM, SERUM 9.2 MG/DL (8.5-10.4); CHLORIDE, SERUM 97 MMOL/L (96-112); CO2 (CARBON DIOXIDE) 35 MMOL/L (24-34); CREATININE 0.64 MG/DL (0.70-1.30); GFR AFRICAN AMERICAN 137 ML/MIN (>=60); GFR NON AFRICAN AMERICAN 118 ML/MIN (>=60); GLUCOSE, SERUM 112 MG/DL (60-99); POTASSIUM, SERUM 4.5 MMOL/L (3.5-5.3); SODIUM, SERUM 135 MMOL/L (135-148)
== END 2017-06-29 15:48 | disposition home or self-care (01) | DRG 28 ==
LOC: ENRESERV → ENRESERVDT → ENRESERVTM → ER 04:38 → 3SO 07:36 → ER 10:25 → CVICU 10:50 → SDC/OF 10:50 → 3SO 10:50 → CVICU 15:35 → 3SO 06-28 13:04
PROVIDERS: Internal Medicine Cardiovascular Disease; Orthopaedic Surgery Orthopaedic Surgery of the Spine; Specialist
PROC: 8C01X6J Collection of Cerebrospinal Fluid from Indwelling Device in Nervous System (ICD-10-PCS; 2017-06-22)
PROC: 0RP10JZ Removal of Synthetic Substitute from Cervical Vertebral Joint, Open Approach (ICD-10-PCS; 2017-06-22)
PROC: 00UT0JZ Supplement Spinal Meninges with Synthetic Substitute, Open Approach (ICD-10-PCS; principal; 2017-06-22 12:15)
PROC: 0PB30ZZ Excision of Cervical Vertebra, Open Approach (ICD-10-PCS; 2017-06-26)
PROC: 00UT0JZ Supplement Spinal Meninges with Synthetic Substitute, Open Approach (ICD-10-PCS; 2017-06-26)
PROC: 0RG1070 Fusion of Cervical Vertebral Joint with Autologous Tissue Substitute, Anterior Approach, Anterior Column, Open Approach (ICD-10-PCS; 2017-06-26)
PROC: 009U30Z Drainage of Spinal Canal with Drainage Device, Percutaneous Approach (ICD-10-PCS; 2017-06-26)
PROC: 07DR3ZZ Extraction of Iliac Bone Marrow, Percutaneous Approach (ICD-10-PCS; 2017-06-26)
DX: G97.82 Other postprocedural complications and disorders of nervous system (principal); G93.40 Encephalopathy, unspecified; G96.0 Cerebrospinal fluid leak; G96.11 Dural tear; L76.32 Postprocedural hematoma of skin and subcutaneous tissue following other procedure; I10 Essential (primary) hypertension; F17.210 Nicotine dependence, cigarettes, uncomplicated; E78.5 Hyperlipidemia, unspecified; E03.9 Hypothyroidism, unspecified; G47.33 Obstructive sleep apnea (adult) (pediatric); E66.9 Obesity, unspecified; I25.10 Atherosclerotic heart disease of native coronary artery without angina pectoris; K21.9 Gastro-esophageal reflux disease without esophagitis; Z98.890 Other specified postprocedural states; Z79.82 Long term (current) use of aspirin; Z79.899 Other long term (current) drug therapy; Z88.8 Allergy status to other drugs, medicaments and biological substances; Y83.8 Other surgical procedures as the cause of abnormal reaction of the patient, or of later complication, without mention of misadventure at the time of the procedure; Z68.33 Body mass index [BMI] 33.0-33.9, adult; R00.1 Bradycardia, unspecified; R33.9 Retention of urine, unspecified
CPT/HCPCS: 70450; 70491; 71010; 80048; 82962; 83735; 84100; 85025; 87040; 87070; 87075; 87205; 88300; 93005; 96374; 96375; 96376; 97116-GP; 97162-GP; 97164-GP; 99285; A9270-GY; C1713; C1768; J0330; J0461; J0690; J1170; J1644; J1885; J2250; J2370; J2405; J2550; J2710; J3010; Q9967